=== PATIENT | female | born 1960 | race Caucasian/White ===

== ENCOUNTER → 2024-02-18 | Outpatient (CLI) | payer MEDICAID, SELFPAY ==
--- NOTE | 2024-02-18 13:40 | MRI_ITS ---
STUDY: MRI RIGHT SHOULDER REASON FOR EXAM: Female, 63 years old. Pain. Right cuff tear. Fell off chair onto arm 12/23/2023. TECHNIQUE: Standardized fat and water weighted pulse sequences were obtained in all 3 orthogonal planes. COMPARISON: Right shoulder radiographs dated 01/15/2024. FINDINGS: There is a full-thickness tear of the distal supraspinatus tendon, overall measuring 1.4 cm in length (coronal T2 series 7 images 11-13) and 1.3 cm in width (sagittal T2 series 4 images 8-9). There is mild infraspinatus tendinosis. There is subscapularis tendinosis with tendon attrition. Normal teres minor tendon. Normal supraspinatus muscle. Normal infraspinatus muscle. Normal subscapularis muscle. Normal teres minor muscle. There is an empty bicipital groove, compatible with long biceps tendon tear/rupture. There is a small glenohumeral joint effusion with fluid communicating into the subacromial-subdeltoid bursa. Intact humeral head and visualized proximal humerus. Normal labrum. Normal capsulo-ligamentous complex. There is hypertrophic acromioclavicular arthrosis, with inferior osteophyte formation, with mild effacement of the supraspinatus myotendinous junction (coronal T2 series 7 image 10). There is a Type II morphology (curved), with a neutral orientation. Normal visualized coracohumeral and coracoacromial ligaments. Normal quadrilateral space. Normal axillary space. Normal deltoid muscle. Normal trapezius muscle. MRI/Upper Ext Joint Only(Routine) IMPRESSION: 1.4 x 1.3 cm full-thickness tear of the distal supraspinatus tendon. Mild infraspinatus and subscapularis tendinosis. Hypertrophic acromioclavicular arthrosis, with inferior osteophyte formation, with mild effacement of the supraspinatus myotendinous junction. Small glenohumeral joint effusion with fluid communicating into the subacromial-subdeltoid bursa. Long biceps tendon tear/rupture. Electronically Signed: David Odom MD at 15:19 EDT ,
== END | disposition home or self-care (01) ==
LOC: MRI 13:27
PROVIDERS: Referring Provider Orthopaedic Surgery Sports Medicine; Visit Provider Orthopaedic Surgery Sports Medicine
DX: M25.511 Pain in right shoulder (principal)
CPT/HCPCS: 73221